=== PATIENT | female | born 1960 | race Caucasian/White ===

== ENCOUNTER 2017-03-11 12:06 | Observation (INO) | payer BC ==
--- NOTE | ~2017-03-11 | HP ---
History And Physical [id number] [place]. [address] NAME: INGRID GORDON : 62 STATUS : ADM Leia PAT#: [id number] AGE: 56 ADM/REG DATE : 03/11/17 MR#: [id number] REPORT SERV DATE: 03/12/17 DICTATED BY: ANTOINETTE MULLEN DATE: 03/12/17 REPORT STATUS : Draft TRANSCRIBED BY: MODKolby DATE: 03/12/17 DATE OF ADMISSION: 03/11/2017 [employer] [employer] MANAGER: Jhon Sarmiento M.D. CHIEF COMPLAINT: Chest pain. HISTORY OF PRESENT ILLNESS: A very pleasant 56-year-old white female with insignificant CAD identified by cath in 2011. States that on 03/11 around 0730 while at work and after having climbed 30 stairs, she experienced shortness of breath. Subsequently she developed some chest pain that radiated to both of her arms, her jaw and her shoulders. She describes associated shortness of breath, nausea, and dizziness. Denies diaphoresis or belching. She describes her chest pain as a pressure and a stabbing sensation. At its most intense, she rated an 8/10. At time of interview in the [facility], she is pain free. She states the episode lasted three hours in duration. She left her work, came to our emergency room. Aspirin and nitroglycerin seemingly improved her symptoms. She denies any personal history of myocardial infarction, stroke, DVT, or pulmonary embolus. Recently treated for UTI with Cipro. Describes occasional palpitations. Consumes two to three cups of coffee per day. No syncopal episodes. Denies PND or orthopnea. PAST MEDICAL HISTORY: 1. Insignificant CAD by cath in 2011. 2. Dyslipidemia, intolerant to statins. 3. Denies hypertension or diabetes. 4. IBS. 5. LBBB (chronic). 6. Positive family history for early CAD. PAST SURGICAL HISTORY: 1. Hysterectomy. 2. Cholecystectomy. 3. Arthroscopic repair of left knee twice. 4. Tonsillectomy. SOCIAL HISTORY: She is with three children. She is employed at [employer]. Does not have a structured exercise routine. Denies tobacco, alcohol, or illicits. FAMILY HISTORY: Mother with CAD and stents, remains alive at the age of 76. Father of throat cancer at 55. Brother with CAD and bypass at 54, remains alive at 56. REVIEW OF SYSTEMS: A 14-point review of systems performed and significant for HPI including recent MRI of abdomen for IBS, followed by Dr. Garnett. Otherwise, complete review of systems obtained and negative. History And Physical [address] [place]. [address] NAME: INGRID GORDON : 62 STATUS : ADM Leia PAT#: [id number] AGE: 56 ADM/REG DATE : 03/11/17 MR#: [id number] REPORT SERV DATE: 03/12/17 DICTATED BY: ANTOINETTE MULLEN DATE: 03/12/17 REPORT STATUS : Draft TRANSCRIBED BY: ABBE DATE: 03/12/17 ALLERGIES: METOPROLOL, INSOMNIA; ATORVASTATIN, MYALGIA. HOME MEDICINES: Aspirin 81 mg daily, Cipro 500 mg twice daily for five days, vitamin B12 of 2500 mcg daily, Levsin 0.375 twice daily, MiraLAX p.r.n. PHYSICAL EXAMINATION: VITAL SIGNS: Blood pressure 121/62, pulse 76, respirations 17, temperature 97.9, O2 saturation 98% on room air. Height 5 feet 8 inches, weight 197 pounds. BMI 30. GENERAL: Cooperative, in no apparent distress. HEENT: Pupils 2 mm, sclera nonicteric. Nares patent. Moist mucous membranes. No xanthelasma. NECK: Trachea midline, no thyromegaly. No JVD. No bruits. LYMPH: No cervical lymphadenopathy. No supraclavicular lymphadenopathy. RESPIRATORY: Unlabored respirations. Breath sounds clear bilaterally to posterior auscultation. No wheezes or rhonchi. CARDIOVASCULAR: Regular rate. No murmur, rub or gallop appreciated. Extremities without edema. Pulses 2+ bilaterally. ABDOMEN: Soft, nontender, nondistended, normal bowel sounds auscultated throughout. No organomegaly. SKIN: Warm, dry extremities. No pallor or cyanosis. PSYCHIATRIC: Appropriate affect. Alert, oriented x3. LABORATORY DATA: Troponin less than 0.02 twice. Potassium 3.9, BUN 18, creatinine 0.82, glucose 95, magnesium 2.3. Lipase 129. WBC 6.1, hemoglobin 12.9, hematocrit 38.1, platelet count of 203,000. EKG: Sinus rhythm, LBBB (chronic). MPI, 01/2015: No ischemia. Cath, 2011 (Dr. Wynn): Insignificant CAD, EF 55%. CT of brain, no evidence of acute bleed or infarction. ASSESSMENT AND PLAN: 1. Substernal chest pain in patient with insignificant CAD by catheterization in 2011 and intolerant to statins. The patient has been observed in the CP[facility] overnight to rule out myocardial infarction. Two cardiac markers negative. Held n.p.o. We will proceed with vasodilator stress test today. Home if no ischemia to follow up with her PCP and Dr. Sarmiento as appropriate. If anything suggestive of ischemia, Cardiology referral will be initiated. 2. Mild coronary artery disease, intolerant to statins. Diet and exercise discussed. Follow up with Dr. Sarmiento. 3. Dyslipidemia, intolerant to statins. Diet choices discussed. AURELIA/ABBE History And Physical [address] [address] NAME: INGRID GORDON : 62 STATUS : ADM Leia PAT#: [id number] AGE: 56 ADM/REG DATE : 03/11/17 MR#: [id number] REPORT SERV DATE: 03/12/17 DICTATED BY: ANTOINETTE MULLEN DATE: 03/12/17 REPORT STATUS : Draft TRANSCRIBED BY: ABBE DATE: 03/12/17 Antoinette Mullen, MSN, EGG CANDLER-BC / [id number] CC: Rocio Brownlee, Annmarie Blas M.D.
[2017-03-11 11:48] LABS: BASOPHILS 1.3 %; BASOPHILS ABSOLUTE 0.08 10/3/uL (0.0-0.16); EOSINOPHILS 6.1 %; EOSINOPHILS ABSOLUTE 0.37 10/3/uL (0.0-0.53); ER CBC TAT 0 Hrs 11 Mins; HEMOGLOBIN 12.9 g/dL (12.0-16.0); IMMATURE GRANULOCYTES 0.2 %; IMMATURE GRANULOCYTES ABSOLUTE 0.01 10/3/uL (0.0-0.11); LYMPHOCYTES ABSOLUTE 2.37 10/3/uL (0.67-4.30); MEAN CORPUS HGB CONC 33.9 g/dL (32.0-36.0); MEAN CORPUSCULAR HEMOGLOB 32.3 pg (26.0-34.0); MEAN CORPUSCULAR VOLUME 95.5 fL (80-100); MEAN PLATELET VOLUME 9.6 fL (9.2-13.0); MONOCYTES 8.6 %; MONOCYTES ABSOLUTE 0.52 10/3/uL (0.21-1.20); NEUTROPHILS 44.8 %; NEUTROPHILS ABSOLUTE 2.72 10/3/uL (2.02-8.40); PLATELET COUNT 203 10/3/uL (150-400); RBC DISTRIBUTION WIDTH 12.5 % (12.0-16.0); RED CELL COUNT 3.99 10/6/uL (4.0-5.6); WHITE BLOOD CELLS 6.1 10/3/uL (4.5-10.5)
[2017-03-11 11:49] LABS: HEMATOCRIT 38.1 % (36.0-48.0); MANUAL DIFF NO %
[2017-03-11 11:55] LABS: PARTIAL THROMBO TIME 27.4 SEC (22.5-37.2); PROTIME (NOT ORD) 13.4 SEC (12.0-14.5)
[2017-03-11 12:05] LABS: BUN (BLOOD UREA NITROGEN) 18 MG/DL (6-23); CALCIUM, SERUM 8.7 MG/DL (8.5-10.4); CHEST PAIN PROFILE TAT 0 Hrs 28 Mins; CHLORIDE, SERUM 103 MMOL/L (96-112); CO2 (CARBON DIOXIDE) 29 MMOL/L (24-34); CREATININE 0.82 MG/DL (0.55-1.02); GFR AFRICAN AMERICAN 93 ML/MIN (>=60); GFR NON AFRICAN AMERICAN 81 ML/MIN (>=60); GLUCOSE, SERUM 95 MG/DL (60-99); POTASSIUM, SERUM 3.9 MMOL/L (3.5-5.3); SODIUM, SERUM 141 MMOL/L (135-148); TROPONIN I <0.02 NG/ML (<0.05)
[~2017-03-11 12:06] MED LIST: *DENIES; ASAB PO; LOP25 PO; OMEPRAZOLE PO; PRAVAC PO
[2017-03-11] MEDS ORDERED: LEVSINTAB PO (16:08)
[2017-03-11] MEDS ORDERED: ASAB PO (16:08)
[2017-03-11] MEDS ORDERED: VITAMIN B-122500 MCG PO (16:09)
[2017-03-11] MEDS ORDERED: MIRALAX POWDER1 PKT PO (16:09)
[2017-03-11] MEDS ORDERED: CIP5 PO (16:12)
== END 2017-03-12 14:23 | disposition home or self-care (01) ==
LOC: ER 12:06 → CDU1 17:07 → CDU2 17:42
PROVIDERS: Physician Assistant
DX: R07.2 Precordial pain (principal); I25.10 Atherosclerotic heart disease of native coronary artery without angina pectoris; E78.5 Hyperlipidemia, unspecified; Z90.710 Acquired absence of both cervix and uterus; Z90.49 Acquired absence of other specified parts of digestive tract; Z87.19 Personal history of other diseases of the digestive system; Z98.890 Other specified postprocedural states; Z88.8 Allergy status to other drugs, medicaments and biological substances; Z79.82 Long term (current) use of aspirin; Z79.899 Other long term (current) drug therapy
CPT/HCPCS: 70450; 71010; 78452; 80048; 83690; 83735; 84484; 85025; 85610; 85730; 93005; 93017; 99285; A9270-GY; A9502; G0378; J0153; J0280